=== PATIENT | male | born 1955 | race Caucasian/White ===

== ENCOUNTER 2020-05-15 15:54 | Outpatient (CLI) | payer MEDICARE, OTHER, SELFPAY | END 2020-05-15 15:55 | disposition home or self-care (01) | LOC: ANHCOVIDVC 15:54 | PROVIDERS: PCP Hospitalist; Visit Provider Family Medicine | DX: Z23 Encounter for immunization (principal) | CPT/HCPCS: 0001A; 91300 ==

== ENCOUNTER 2020-06-05 15:56 | Outpatient (CLI) | payer MEDICARE, OTHER, SELFPAY | END 2020-06-05 15:57 | disposition home or self-care (01) | LOC: ANHCOVIDVC 15:56 | PROVIDERS: PCP Hospitalist | DX: Z23 Encounter for immunization (principal) | CPT/HCPCS: 0002A; 91300 ==

== ENCOUNTER 2021-10-15 08:57 | Outpatient (CLI) | payer MEDICARE, OTHER, SELFPAY ==
--- NOTE | ~2021-10-15 | US_ITS ---
EXAMINATION: US aorta [facility] DATE: 10/15/2021 12:18 CDT INDICATION: Hypertension. History of smoking. TECHNIQUE: Grayscale, color Doppler, and pulsed Doppler images of the aorta and common iliac arteries were obtained. COMPARISON: None. FINDINGS: The proximal aorta is not well visualized due to bowel gas. The mid aorta measures 2 cm greatest sagi ttal dimension. The distal aorta measures 2.1 cm greatest sagittal dimension. The right common internal controls manager al iliac artery measures 1.4 cm. The left common iliac artery measures 1 cm. IMPRESSION: 1. No evidence for aortic aneurysm. Proximal abdominal aorta not well visualized due to bowel gas. Reviewed, dictated and finalized at location A. IMPRESSION: 1. No evidence for aortic aneurysm. Proximal abdominal aorta not well visualize d due to bowel gas.
== END 2021-10-15 08:58 | disposition home or self-care (01) ==
PROVIDERS: PCP Family Medicine; Visit Provider Family Medicine
DX: Z13.6 Encounter for screening for cardiovascular disorders (principal)
CPT/HCPCS: 76706

== ENCOUNTER 2023-11-17 13:34 | Outpatient (CLI) | payer MEDICARE, SELFPAY ==
--- NOTE | ~2023-11-17 | PE_ITS ---
EXAMINATION: PET_PETPSMAST_PT DATE: 11/17/2023 16:00 INDICATION: Malignant neoplasm of prostate. TECHNIQUE: 5.223 mCi of Ga-68 gozetotide was administered intravenously. Low dose computed tomography (CT) images were acquired from the base of the brain to the proximal thighs for attenuation correcti on and anatomic localization. Automated exposure control was employed. Dose-length product (DLP) was 1283 mGy-cm. Positron emission tomography (PET) images were acquired in the same distribution. COMPARISON: None FINDINGS: Head/neck: There are no pathologically enlarged lymph nodes. Chest: There is mild emphysema. There are changes of right lower lobectomy. No pleural effusion. The heart size is normal. There are calcifications of the aortic valve. There are coronary artery calcifi cations. No pericardial effusion. 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 Abdomen/pelvis/proximal thighs: The liver, gallbladder, spleen, pancreas, adrenal glands, and right k idney are normal. There is moderate atrophy of left kidney. There is diverticulosis of the colon with out evidence of diverticulitis. There is calcified atherosclerosis of the aorta and many of the other arteries. There are no pathologically enlarged lymph nodes. There is no free intraperitoneal fluid. The prostate is normal in size with maximum SUV of 11.8. There is a left inguinal hernia containing f at. There is no osseous malignancy. IMPRESSION: 1. Normal-sized prostate with maximum SUV of 11.8, consistent with primary malignancy. No evidence of metastatic disease. Reviewed, dictated and finalized at location A. IMPRESSION: 1. Normal-sized prostate with maximum SUV of 11.8, consistent with primary [place] gn[place]. No evidence of metastatic disease.
== END 2023-11-17 13:35 | disposition home or self-care (01) ==
LOC: ANHIMG 13:37
PROVIDERS: PCP Family Medicine; Visit Provider Urology
DX: C61 Malignant neoplasm of prostate (principal)
CPT/HCPCS: 78815; A9596

== ENCOUNTER 2024-10-20 03:19 | Day surgery (SDC) | payer MEDICARE, SELFPAY ==
[2024-10-10 11:53] VITALS: BMI 36.4
--- OUTSIDE RECORDS SUMMARY | 2024-10-20 03:22 | XMS_ITS | Encounter Summary ---
Author Organization [facility] Address [address] [place] [address] Care Team Providers Care Salesperson [employer] Name Role Phone None, Provider Primary Care Provider Cain Pritchett MD Primary Care Provider [phone] Encounter Details Date Type Department Care Team (Late st Contact Info) Description 10/14/2023 Prep for Procedure [facility] [place], [place] [id number] Ty Leblanc MD [address] [facility] [address] [place], [place] [id number] Social History Tobacco Use Types Packs/Day Years Used Date Smoking Tobacco: Every Day Cigarettes Smokeless Tobacco: Never Sex and Gender Information Value Date Recorded Sex Assigned at Not on file Legal Sex Male 7:37 AM CDT Gender Identity Not on file Sexual Orientation Not on file documented as of this encounter Plan of Treatment Upcoming Encounters Date Type Department Care Team (Late st Contact Info) Description 11/17/2024 10:40 AM CDT Office Visit [facility] Family Medicine - [place] [address] [facility], [address] [place] [address] Parker Torres MD [facility], [place] [address] [place] [id number] documented as of this encounter Results * URINE BACTERIA CULTURE (10/08/2023 3:53 PM CDT) SPEC DESCRIPTION URINE CLEAN CATCH 10/08/2023 3:53 PM CDT [facility] SPECIAL REQUESTS NO SPECIAL REQUEST 10/08/2023 3:53 PM CDT [facility] CULTURE RESULT NO GROWTH 2 DAYS 10/10/2023 7:47 AM CDT [facility] URINE SPECIMEN OBTAINED BY CLEAN CATCH PROCEDURE / Unknown 10/08/2023 3:53 PM CDT 10/08/2023 4:00 PM CDT us Ty Leblanc MD MICROBIOLOGY - GENERAL ORDERABL ES Final Result [facility] [address] [place] [address], documented in this encounter Visit Diagnoses Diagnosis Elevated prostate specific antigen (PSA)- Primary Bladder mass Other specified disorders of bladder Microscopic hematuria documented in this encounter Care Teams Salesperson [employer] Relationship Specialty Start Date End Date None, Provider, MD PCP - General UNKNOWN PHYSICIAN SPECIALTY 09/03/23 01/17/24 Cain Wood MD [address] [place] [id number] PCP - General FAMILY PRACTICE 01/18/24 documented as of this encounter
--- OUTSIDE RECORDS SUMMARY | 2024-10-20 03:22 | XMS_ITS | Continuity of Care Document ---
Author Organization [facility] Address [address] [facility] [address] [place] [address] Phone Care Team Providers Care Book Publisher Name Role Phone Jimena PT, DPT, Neema Unavailable Unavaila ble Procedures Procedure Date Therapeutic Activities Neuromuscular Re-Ed Therapeutic Activities Therapeutic Activities Neuromuscular Re-Ed Progress Note Therapeutic Activities Therapeutic Exercise Therapeutic Activities Neuromuscular Re-Ed Therapeutic Exercise Therapeutic Activities Neuromuscular Re-Ed Therapeutic Exercise Therapeutic Activities Neuromuscular Re-Ed Therapeutic Exercise Doc neg elder mal no plan PT Evaluation Moderate Complexity Therapeutic Activities Therapeutic Exercise Advance Directives Directive Yes / No Effective Date File Name No Information Encounters Encounter Description Practice Location Reason(s) For Visit Diagnoses Date Provider Providers Copied on Encounter [facility] [facility] [address], [place], [place], [id number], tel:[phone] [place] No Information Jimena Bethea. . Referring Provider: Tj Hope, [place], [address]. tel:[phone] [facility] [facility] [address], [place], [place], [id number], [place] tel:[phone] [place] No Information 5 Hess Neema. . Referring Provider: Ty Leblanc, [address], [place], [address]. tel:[phone] [place] [address] [address], [place], [place], [id number], [place] tel:[phone] [place] No Information 0 5 Hess Neema. . Referring Provider: Ty Leblanc, [address], [place], [address]. tel:[phone] [place] [address] [address], [place], [place], [id number], tel:[phone] [place] No Information 0 5 Hess Neema. . Referring Provider: Ty Leblanc [address], [place], [address]. tel:[phone] [place], [place] [id number] [address], [place], [place], [id number], [place] tel:[phone] [place] No Information 5 Hess Neema. . Referring Provider: Ty Leblanc, [address], [place], [address]. tel:[phone] [facility], [place], [place], [id number], [place] tel:[phone] [place] No Information 5 Hess Neema. . Referring Provider: Ty Leblanc [address], [place], [address]. tel:[phone] [facility], [place], [place], [id number], [place] tel:[phone] [place] No Information 5 Hess Neema. . Referring Provider: Ty Leblanc [address], [place], [address]. tel:[phone] [place], [address], [place], [place], [id number], tel:[phone] [place] No Information 5 Jimena Bethea. . Referring Provider: Ty Leblanc, [address], [place], [address]. tel:[phone] Family History Family Member Type Diagnosis Age At Onset No Information Payers Payer name Insurance type Covered constitution party ID Authoriza tion(s) Medicare [place] MB [id number] A[employer]na Senior Supplemental Insurance CI [id number] Social History Type Description Quantity Date Captured Comments Sex Male Smoking Status No Information Chief Complaint And Reason For Visit No Information Reason For Referral Reason For Referral No Information Plan Of Treatment Date Type Action Status Goal Tobacco cessation counseling completed Goal Tobacco Cessation Counseling completed History Of Present Illness Encounter Date Complaint History Of Prese nt Illness No Information Functional Status Date Functional Assessmen t No Information Instructions Date Instruction Additional Infor mation No Information Assessments Type Assessment Date No Information Patient Care Teams Name Effective Dates (start - stop) Status Members No Information
--- OUTSIDE RECORDS SUMMARY | 2024-10-20 03:22 | XMS_ITS | Clinical Summary ---
Author Organization [facility] Address [facility] [place] [address] Care Team Providers Care Process Coach Name Role Phone Cain Wood MD Primary Care Provider [phone] Allergies No known active allergies Medications lisinopril-hydro CHLOROthiazide (ZESTORETIC) 20-25 MG tablet Take 1 tablet by mouth daily. 07/23/2023 Active Active Problems Problem Noted Date Diagnosed Date Prostate cancer ([facility]) 01/28/2024 Family History Medical History Relation Comments Alcohol Abuse Father Hypertension Father [place] Father Cancer Maternal Aunt colon Cancer Maternal Grandmother breast Cancer Maternal Uncle colon Cerebral aneurysm Paternal Grandfather Thyroid Disease Sister Relation Status Comments Father Maternal Aunt Maternal Grandmother Maternal Uncle Paternal Grandfather Sister Social History Tobacco Use Types Packs/Day Years Used Date Smoking Tobacco: Every Day Cigarettes 1 54.6 Started: 1970 Smokeless Tobacco: Never Tobacco Cessation:Ready to Q uit: Not Asked; Counseling Given: Not Answered Alcohol Use Standard Drinks/Week Comments Never 0 (1 standard drink = 0.6 oz pur e alcohol) [facility] Utilities Answer Date Recorded In the past 12 months has e [employer], oil, or water [employer] threatened to shut off services in your home? No 01/28/2024 Humiliation, Afraid, Rape, and Kick questionnair e Answer Date Recorded Within the last year, have y ou been afraid of your partner or ex-partner? No 01/28/2024 Within the last year, have y ou been humiliated or emotionally abused in other ways by your partner or ex-partner? No Within the last year, have y ou been kicked, hit, slapped, or otherwise physically hurt by your partner or ex-partner? No 01/28/2024 Within the last year, have y ou been raped or forced to have any kind of sexual activity by your partner or ex-partner? No 01/28/2024 Overall Financial Resource Strain (CARDIA) Answe r Date Recorded How hard is it for you to pa y for the very basics like food, housing, medical care, and heating? Not hard at all 01/28/2024 Hunger Vital Sign Answer Date Recorded Within the past 12 months, y ou worried that your food would run out before you got the money to buy more. Never true 01/28/20 24 Within the past 12 months, t he food you bought just didn't last and you didn't have money to get more. Never true 01/28/2024 PRAPARE - Transportation Answer Date Re corded In the past 12 months, has l ack of transportation kept you from medical appointments or from getting medications? No 01/14 In the past 12 months, has l ack of transportation kept you from meetings, work, or from getting things needed for daily living? No 01/28/2024 Housing Stability Vital Sign Answer Rubin e Recorded In the last 12 months, was t here a time when you were not able to pay the mortgage or rent on time? No 01/28/2024 In the past 12 months, how m any times have you moved where you were living? 0 01/28/2024 At any time in the past 12 m [facility], were you homeless or living in a custodial (including now)? No 01/28/2024 Sex and Gender Information Value Date Recorded Sex Assigned at Not on file Legal Sex Male 7:37 AM CDT Gender Identity Not on file Sexual Orientation Not on file Last Filed Vital Signs Vital Sign Reading Time Taken Comments Blood Pressure 101/64 01/29/2024 7:30 AM MUNICIPAL ENGINEER Pulse 79 01/29/2024 7:30 AM MUNICIPAL ENGINEER Temperature 36.6 C (97.8 F) 01/29/2024 7:30 AM MUNICIPAL ENGINEER Respiratory Rate 18 01/29/2024 7:30 AM MUNICIPAL ENGINEER Oxygen Saturation 93% 01/29/2024 7:30 AM MUNICIPAL ENGINEER Inhaled Oxygen Concentration - - Weight 105.3 kg (232 lb 2.3 oz) 01/28/2024 6:15 AM MUNICIPAL ENGINEER Height 177.8 cm (5' 10) 01/28/2024 6:15 AM MUNICIPAL ENGINEER Body Mass Index 33.31 01/28/2024 6:15 AM MUNICIPAL ENGINEER Plan of Treatment Upcoming Encounters Date Type Department Care Team (Late st Contact Info) Description 11/17/2024 10:40 AM CDT Office Visit [facility] Family Medicine - [address], [address] [place] [address] Mary Kate VII, Parker Stewart MD [address] [facility], [place] [address] [place] [address] Health Maintenance Due Date Last Done Comments Colorectal Cancer Screening Colonoscopy (10 Years) 1955 Hepatitis C 1973 DTaP, Tdap and Td Vaccines (1 - Tdap) 1974 Zoster Vaccines (1 of 2) 2005 Annual Medicare Wellness Visit 01/31/2020 Pneumococcal Vaccine: 50+ Years (2 of 2 - PCV) 04/03/2021 04/03/2020 COVID-19 Vaccine ( season) 2023 02/09/2023, 02/16/2021, 06/05/2020, Additional history exists RSV Immunization or 60+ Years Completed 01/06/2023 AAA SCREENING Completed 09/03/2023 Meningococcal B Vaccine Aged Out No l onger eligible based on patient's age to complete this topic Meningococcal Vaccine Aged Out No matt marleni eligible based on patient's age to complete this topic RSV Immunizations Under 20 Months Aged Out No longer eligible based on patient's age to complete this topic Goals Goal Patient Goal Type Associated Problems Recent Progress Patient-Stated? Author Safety - demonstrates understanding of home safety measures Lifestyle Polina Gomez, RN Safety Patient/family will have appropriate support at home upon discharge Lifestyle Polina Gomez women's studies lecturer Procedure Name Priority Date/Time Associated Diagnosis Comments CT ABD+PEL WWO CON STAT 09/03/2023 9: 50 AM CDT from Last 3 Months or Most Recently Relevant to Health Maintenance Results * CT ABD+PEL WWO CON (09/03/2023 9:50 AM CDT) Anatomical Region Laterality Modality Abdomen Computed Tomogra phy 09/03/2023 11:0 9 AM CDT Impressions 09/03/2023 11:18 AM CDT Impression: 1. Right posterior lateral bladder wall 1 cm intraluminal papillary projection suspicious for neoplasm. Cystoscopic assessment and sampling recommended 2. Asymmetric moderately severe left renal multifocal cortical scarring and diffuse volume loss, etiology uncertain. 3. Approximately 3 right renal 1 cm Bosniak 1 benign simple cysts pleural effusion no further follow-up is indicated 4. Sigmoid colon diverticulosis without diverticulitis. 5. Other nonemergent, incidental, stable and potential chronic findings as discussed in the report body above. Ordered By: MATTHEW MODI Interpreted By: Aranza Chapa MD, 09/03/2023 11:09 AM Narrative 09/03/2023 11:18 AM CDT Examination: CT abdomen and pelvis without and with IV contrast. Exam Date/Time: 09/03/2023 9:33 AM Indication: 68 male. Presenting to the emergency room with new onset pain left hematuria Comparison: Comparison Technique: Multiphase computed tomography of the abdomen and pelvis performed before and following uneventful intravenous administration of 100 mL Isovue-370 contrast. Postcontrast images acquired in the nephrographic and delayed excretory phase. A dose lowering technique was used for this procedure, which may include, but is not limited to, dose reduction technique, automated exposure control, the use of iterative reconstruction, and ALARA (As Low As Reasonably Achievable) / Image Gently techniques. CT Findings: LOWER CHEST Normal cardiac size. Coronary artery disease. No pericardial or pleural effusion. Hyperlucent lung bases as it COPD changes/emphysema with background scattered linear subsegmental atelectasis and/or scarring. No concerning focal . UPPER ABDOMEN Liver and bile ducts: Normal size, contour and enhancement. No focal lesion. Hepatic and portal venous systems are patent. No intra or extrahepatic biliary tree dilatation. Gallbladder: Unremarkable. No calcific cholelithiasis or intraluminal. Pancreas: Normal. Spleen: Normal. RETROPERITONEUM Adrenals: Normal. Kidneys: No urinary system stones seen in either kidney, ureters or bladder. Normal size contour and enhancement of the right kidney. Multifocal scarring and diffuse moderately severe left renal volume loss. Remaining left renal parenchyma enhances normally. No collecting system obstruction on site. No abnormal perinephric stranding. There are approximately 3, 1 cm right renal Bosniak 1 benign cysts. There is a left renal cortical subcentimeter hyperenhancing lesion too small to characterize. No definite renal parenchymal surgical lesion. Bilateral small extrarenal pelvises. Normal contrast excretion from both collecting systems without filling defects on delayed phase images. Partial opacification of the bilateral ureters which are not dilated. Bilateral ureteral jets identified with good contrast opacification of partially distended urinary bladder. There is a papillary intraluminal papillary projection from the right posterior bladder wall measuring 10 mm suspicious for neoplasm. Remainder of the urinary bladder appears unremarkable. Lymph nodes: No lymphadenopathy in the abdomen or pelvis. BOWEL AND PERITONEUM Bowel: Distal esophageal mild circumferential mural thickening and/or small hiatal hernia. Overall generally normal bowel caliber in thickness. Normal appendix. Sigmoid colon diverticulosis without diverticulitis. No acute other significant gastrointestinal tract finding within study limits Free air or fluid: None. VASCULATURE Prominent aortoiliac atherosclerosis. No aneurysm. Visceral arteries are patent. PELVIS Finding is discussed above. Prostate seminal vesicles are within normal limits. BONES/SOFT TISSUES Moderate lumbar levocurvature. Mild diffuse bony demineralization and minimal multilevel degenerative change. No concerning focal lytic or blastic lesion Procedure Note Aranza Chapa MD - 09/03/2023 Examination: CT abdomen and pelvis without and with IV contrast. Exam Date/Time: 09/03/2023 9:33 AM Indication: 68 male. Presenting to the emergency room with new onset painleft hematuria Comparison: Comparison Technique: Multiphase computed tomography of the abdomen and pelvisperformed before and following uneventful intravenous administration of100 mL Isovue-370 contrast. Postcontrast images acquired in thenephrographic and delayed excretory phase. A dose lowering technique wasused for this procedure, which may include, but is not limited to, dosereduction technique, automated exposure control, the use of iterativereconstruction, and ALARA (As Low As Reasonably Achievable) / Image Gentlytechniques. CT Findings: LOWER CHEST Normal cardiac size. Coronary artery disease. No pericardial or pleuraleffusion. Hyperlucent lung bases as it COPD changes/emphysema withbackground scattered linear subsegmental atelectasis and/or scarring. Noconcerning focal . UPPER ABDOMEN Liver and bile ducts: Normal size, contour and enhancement. No focallesion. Hepatic and portal venous systems are patent. No intra orextrahepatic biliary tree dilatation. Gallbladder: Unremarkable. No calcific cholelithiasis or intraluminal. Pancreas: Normal. Spleen: Normal. RETROPERITONEUM Adrenals: Normal. Kidneys: No urinary system stones seen in either kidney, ureters orbladder. Normal size contour and enhancement of the right kidney. Multifocal scarring and diffuse moderately severe left renal volume loss.Remaining left renal parenchyma enhances normally. No collecting systemobstruction on site. No abnormal perinephric stranding. There are approximately 3, 1 cm right renal Bosniak 1 benign cysts. Thereis a left renal cortical subcentimeter hyperenhancing lesion too small tocharacterize. No definite renal parenchymal surgical lesion. Bilateralsmall extrarenal pelvises. Normal contrast excretion from both collectingsystems without filling defects on delayed phase images. Partialopacification of the bilateral ureters which are not dilated. Bilateral ureteral jets identified with good contrast opacification ofpartially distended urinary bladder. There is a papillary intraluminalpapillary projection from the right posterior bladder wall measuring 10 mmsuspicious for neoplasm. Remainder of the urinary bladder appearsunremarkable. Lymph nodes: No lymphadenopathy in the abdomen or pelvis. BOWEL AND PERITONEUM Bowel: Distal esophageal mild circumferential mural thickening and/orsmall hiatal hernia. Overall generally normal bowel caliber in thickness.Normal appendix. Sigmoid colon diverticulosis without diverticulitis. Noacute other significant gastrointestinal tract finding within studylimits Free air or fluid: None. VASCULATURE Prominent aortoiliac atherosclerosis. No aneurysm. Visceral arteries arepatent. PELVIS Finding is discussed above. Prostate seminal vesicles are within normallimits. BONES/SOFT TISSUES Moderate lumbar levocurvature. Mild diffuse bony demineralization andminimal multilevel degenerative change. No concerning focal lytic orblastic lesion Impression: 1. Right posterior lateral bladder wall 1 cm intraluminal papillaryprojection suspicious for neoplasm. Cystoscopic assessment and samplingrecommended 2. Asymmetric moderately severe left renal multifocal cortical scarringand diffuse volume loss, etiology uncertain. 3. Approximately 3 right renal 1 cm Bosniak 1 benign simple cysts pleuraleffusion no further follow-up is indicated 4. Sigmoid colon diverticulosis without diverticulitis. 5. Other nonemergent, incidental, stable and potential chronic findings asdiscussed in the report body above. Ordered By: MATTHEW MODI Interpreted By: Aranza Chapa MD, 09/03/2023 11:09 AM us Matthew Modi MD CT Final Re sult from Last 3 Months or Most Recently Relevant to Health Maintenance Insurance MEDICARE GENERIC - COMMERCIAL Advance Directives * Full Code (Latest Code Status on File) Date Activated Date Inactivated Comments 01/28/2024 1:42 PM 01/29/2024 11:17 AM Care Teams Process Coach Relationship Specialty Start Date End Date Cain Wood MD [address] [place] [id number] PCP - General FAMILY PRACTICE 01/18/24
[2024-10-20 09:39] VITALS: BP 134/90; PULSE 88; RESP 18; TEMP 36.3; O2SAT 94; BMI 35.0
--- NOTE | 2024-10-20 09:49 | WPDANESEPPF ---
Anes - Initial Pre Proc Eval Procedure: Operation Date: 10/20/24 10:30 Proposed Procedures p Screening Colonoscopy - Chrisotpher Murry MD Date/Time: 10/20/24 09:49 Surgeon: Christopher Murry MD Pre Op Diagnosis: Personal history of colon polyps, unspecified Patient Data Age: 69 Gender: M Height: 1.78 m Weight: 110.7 kg Last Vital Signs Temp 36.3 C L 10/20/24 09:39 Pulse 88 10/20/24 09:39 Resp 18 10/20/24 09:39 BP 134/90 10/20/24 09:39 Pulse Ox 94 10/20/24 09:39 O2 Del Method Room Air 10/20/24 09:39 Allergies Allergy/AdvReac Type Severity Reaction Status Date / Time No Known Allergies Allergy Verified 10/20/24 09:37 Home Medications ?Medication ?Instructions ?Recorded ?Confirmed ?Type cetirizine 10 mg tablet (Zyrtec) 10 mg PO DAILY PRN allergy 03/31/23 10/11/24 Rx symptoms #90 tabs hydrochlorothiazide 12.5 mg capsule 12.5 mg PO DAILY #90 caps 09/20/24 10/20/24 Rx vibegron 75 mg tablet (Gemtesa) 75 mg PO DAILY 09/20/24 10/20/24 History Patient hx anesthesia problems: other (early awakening) Family hx anesthesia problems: none Results Review: All pre-operative results and documents have been reviewed as part of the pre-operative evaluation. [facility] Past Medical History Medical History Urinary incontinence Prostate cancer Bladder cancer Elevated prostate specific antigen [PSA] History of lung cancer Nicotine dependence, cigarettes, uncomplicated Generalized anxiety disorder HTN (hypertension) Surgical History Surgical History History of prostatectomy 01/28/2024 History of lobectomy of lung 07/2009 History of fusion of talotibial joint and subtalar joint Left ankle, 02/19/2010 History of open reduction and internal fixation (ORIF) procedure Left ankle fracture, 04/2009 Family History Family History Father Acute myocardial infarction Mother No problems noted. Social History Social History Smoking packs per day: 1 Smoking cigarettes per day: 20.0 Years smoked: 20 Smoking pack-years: 20.00 Smoking status: Current every day smoker Tobacco type: cigarettes and e-cigarettes/vaping Alcohol intake: never Substance use: never Substance use type: does not use Lack of Transportation: No Lack of Food: Never True Current Housing: I Have Housing Concerned About Future Housing: No Difficulty Paying Gas/Electric Bills: No Difficulty Paying for Meds: No Currently Unemployed: No Education: Trade/Vocational Certificate Difficulty w/ Childcare or Family Care: No Living arrangements: alone Occupation/Education: retired Gender identity (if verbalized by the patient): Male Sexual Orientation (if Verbalized by the Patient): Straight or Heterosexual Spiritual care concerns: No Anes - Eval Final PreProcedure Day of Procedure 10/20/24 09:49 Patient weight: obese Heart: regular rate and rhythm Lungs: decreased breath sounds Airway: Mallampati scale class III Neurological: alert and oriented Last oral intake: >/= 8 hours ASA classification: III Emergent: no Anesthetic plan: proceed Anesthesia type and monitoring: general GIVS and standard monitoring Results Review: All pre-operative results and documents have been reviewed as part of the pre-operative evaluation. Informed Consent: The patient's anesthetic plan and its attendant risks and benefits were discussed with the patient/family/POA. Questions were solicited and answers provided to the satisfaction of the patient/family/POA.
[2024-10-20] MEDS: LACTATED RINGERS 1,000 ML 150 ML IV CONT (09:50)
--- NOTE | 2024-10-20 10:06 | P.HP_ITS ---
History of Present Illness History of Present Illness Consent: Risks, benefits, and alternatives have been discussed and questions answered. Patient agrees to proceed with procedure. Chief complaint: Personal history of colon polyps, unspecified Narrative: Magdy Mcgrath is a 69 year old male here for screening colonoscopy, last one more than 10 years ago, h/o prostate and bladder cancer Review of Systems 2 Review of Systems: All systems reviewed & are unremarkable except as noted in HPI and below PMFSH Past Medical History Medical History (Updated 10/20/24 @ 10:06 by Christopher Murry MD) Colon cancer screening Urinary incontinence Prostate cancer Bladder cancer Elevated prostate specific antigen [PSA] History of lung cancer Nicotine dependence, cigarettes, uncomplicated Generalized anxiety disorder HTN (hypertension) Surgical History Surgical History History of prostatectomy 01/28/2024 History of lobectomy of lung 07/2009 History of fusion of talotibial joint and subtalar joint Left ankle, 02/19/2010 History of open reduction and internal fixation (ORIF) procedure Left ankle fracture, 04/2009 Family History Family History Father Acute myocardial infarction Mother No problems noted. Social History Social History Smoking packs per day: 1 Smoking cigarettes per day: 20.0 Years smoked: 20 Smoking pack-years: 20.00 Smoking status: Current every day smoker Tobacco type: cigarettes and e-cigarettes/vaping Alcohol intake: never Substance use: never Substance use type: does not use Lack of Transportation: No Lack of Food: Never True Current Housing: I Have Housing Concerned About Future Housing: No Difficulty Paying Gas/Electric Bills: No Difficulty Paying for Meds: No Currently Unemployed: No Education: Trade/Vocational Certificate Difficulty w/ Childcare or Family Care: No Living arrangements: alone Occupation/Education: retired Gender identity (if verbalized by the patient): Male Sexual Orientation (if Verbalized by the Patient): Straight or Heterosexual Spiritual care concerns: No Meds Home Medications and Allergies Home Medications ?Medication ?Instructions ?Recorded ?Confirmed ?Type cetirizine 10 mg tablet (Zyrtec) 10 mg PO DAILY PRN allergy 03/31/23 10/11/24 Rx symptoms #90 tabs hydrochlorothiazide 12.5 mg capsule 12.5 mg PO DAILY #90 caps 09/20/24 10/20/24 Rx vibegron 75 mg tablet (Gemtesa) 75 mg PO DAILY 09/20/24 10/20/24 History Allergies Allergy/AdvReac Type Severity Reaction Status Date / Time No Known Allergies Allergy Verified 10/20/24 09:37 Vital Signs Vital Signs - 24 hr 10/20/24 09:39 Temperature 97.4 F L Pulse Rate 88 Respiratory Rate 18 Blood Pressure 134/90 Pulse Oximetry 94 Oxygen Delivery Room Air Exam Const: General: comfortable and no acute distress HENMT: Face/Nose/Sinus: Normal nares present Eyes: General: appearance normal, both eyes and all related structures Neck: Neck: no JVD Resp: Auscultation: clear to auscultation bilaterally Cardio: Rate: regular rate Rhythm: regular rhythm GI: Inspection: non-distended GI Palp: Yes Soft to palpation Skin: General skin exam: normal color Neuro: Speech: normal speech Extrem: General: normal to inspection Psych: Mental Status: mental status grossly normal Assessment and Plan Assessment and plan (1) Colon cancer screening: Code(s): Z12.11 - Encounter for screening for malignant neoplasm of colon Status: Acute Assessment and Plan: colonoscopy
--- NOTE | 2024-10-20 10:19 | S_PTH ---
PATIENT: Magdy Mcgrath LOC: [facility]#:[id number] AGE/SX: 69/M ROOM: RE10/20/[address]: Christopher Murry MD : 1955 BED: DIS: 10/20/2024 SPEC #: [id number] RECD: 10/20/24 12:11 STATUS: HOMER REJennifer #: [id number] FARA: 10/20/24 10:[address]: Christopher Murry DEPT: [facility] Surgical RECD BY: Eliana Bhatti ENTERED: 10/20/24 12:12 SP TYPE: Surgical OTHR DR: Cain Wood MD Tissues: A - Colon Polypectomy B - Colon Polypectomy Procedures: Hematoxylin and Eosin Stain Gross and Microscopic Level 4
[2024-10-20 10:23] VITALS: BP 96/60; PULSE 78; RESP 27; O2SAT 94
[2024-10-20 10:33] VITALS: BP 111/80; PULSE 88; RESP 21; O2SAT 96
[2024-10-20 10:43] VITALS: BP 128/84; PULSE 81; RESP 24; O2SAT 96
== END 2024-10-20 10:48 | disposition home or self-care (01) ==
PROVIDERS: PCP Family Medicine; Referring Provider Family Medicine; Visit Provider Internal Medicine Gastroenterology
PROC: 0DJD8ZZ Inspection of Lower Intestinal Tract, Via Natural or Artificial Opening Endoscopic (ICD-10-PCS; CPT 45378; principal; 2024-10-20 10:30)
DX: Z12.11 Encounter for screening for malignant neoplasm of colon (principal); K63.5 Polyp of colon; K64.8 Other hemorrhoids; K57.30 Diverticulosis of large intestine without perforation or abscess without bleeding; I10 Essential (primary) hypertension; R32 Unspecified urinary incontinence; F41.9 Anxiety disorder, unspecified; F17.210 Nicotine dependence, cigarettes, uncomplicated; F17.290 Nicotine dependence, other tobacco product, uncomplicated; E66.9 Obesity, unspecified; Z68.35 Body mass index [BMI] 35.0-35.9, adult; Z98.890 Other specified postprocedural states; Z85.46 Personal history of malignant neoplasm of prostate; Z85.51 Personal history of malignant neoplasm of bladder; Z85.118 Personal history of other malignant neoplasm of bronchus and lung; Z82.49 Family history of ischemic heart disease and other diseases of the circulatory system
CPT/HCPCS: 45385; 88305; J2003; J2704; J7120